=== PATIENT | female | born 1960 | race Caucasian/White ===

== ENCOUNTER 2023-02-08 11:59 | Emergency (ER) | payer OTHER ==
[~2023-02-08] VITALS: Ht 160 cm; Wt 81.8 kg
[2023-02-08] MEDS ORDERED: ondansetron/PF 4mg/2ml inj IV ONE (12:45)
[2023-02-08] MEDS ORDERED: HYDROmorphone 1 mg/ml syringe IV ONE (12:45)
[2023-02-08 12:55] VITALS: TEMP 97.8
[2023-02-08] MEDS ORDERED: HYDROcodone/acetaminophen 5mg/325mg tablet PO ONE (15:25)
[2023-02-08] MEDS ORDERED: HYDR-3965 PO (16:21)
[2023-02-08 16:57] VITALS: BP 144/81; PULSE 59; RESP 16; O2SAT 96
== END 2023-02-08 17:00 | disposition home or self-care (01) ==
LOC: ER 12:01
DX: S42.291A Other displaced fracture of upper end of right humerus, initial encounter for closed fracture (principal); X58.XXXA Exposure to other specified factors, initial encounter; Y93.89 Activity, other specified; Y92.89 Other specified places as the place of occurrence of the external cause; Y99.8 Other external cause status
CPT/HCPCS: 73060; 73200; 96374; 96375; 99285; J1170; J2405; A4565